=== PATIENT | female | born 1985 | race Caucasian/White ===

== ENCOUNTER 2018-04-15 00:43 | Emergency (ER) | payer OTHER ==
[~2018-04-15] VITALS: Ht 157.5 cm; Wt 54.4 kg
[~2018-04-15 00:43] MED LIST: AUGMENTIN 875875 M1 PO; NOHOMEMEDICATIONS; PROMETHAZINE-D120 ML PO; SINUS NASAL SPR30 M1 NS; ZOFRAN4 MG PO
[2018-04-15] MEDS ORDERED: FLEXERIL PO (01:16)
[2018-04-15 01:34] VITALS: BP 127/70
== END 2018-04-15 01:36 | disposition home or self-care (01) ==
LOC: M.ERS 00:43
DX: S16.1XXA Strain of muscle, fascia and tendon at neck level, initial encounter (principal); S29.012A Strain of muscle and tendon of back wall of thorax, initial encounter; F17.210 Nicotine dependence, cigarettes, uncomplicated; Z88.6 Allergy status to analgesic agent; X58.XXXA Exposure to other specified factors, initial encounter; Y93.89 Activity, other specified; Y92.89 Other specified places as the place of occurrence of the external cause; Y99.8 Other external cause status

== ENCOUNTER 2019-01-11 15:58 | Emergency (ER) | payer OTHER, MEDICAID ==
[~2019-01-11] VITALS: Ht 157.5 cm; Wt 54.4 kg
[~2019-01-11 15:58] MED LIST changes: +FLEXERIL PO
[2019-01-11] MEDS ORDERED: TORADOL 10 MG T10 MG PO (16:51)
[2019-01-11] MEDS ORDERED: ACETAMINOPHEN-1 EAC1 PO (16:51)
[2019-01-11] MEDS ORDERED: KEFLEX500 M1 PO (16:55)
[2019-01-11 17:20] VITALS: BP 128/80
== END 2019-01-11 17:22 | disposition home or self-care (01) ==
LOC: M.ERS 15:58
DX: R51 Headache (principal); R59.0 Localized enlarged lymph nodes; F17.210 Nicotine dependence, cigarettes, uncomplicated; Z88.5 Allergy status to narcotic agent; Z98.890 Other specified postprocedural states